=== PATIENT | female | born 1990 | race Two or more races ===

== ENCOUNTER 2020-01-25 07:00 | Day surgery (SDC) | payer OTHER ==
--- NOTE | 2020-01-24 11:56 | NUR ---
PACIENTE ALERTA Y ORIENTADA EN TIEMPO LUGAR Y PERSONA. PACIENTE REFIERE SANGRADO VAGINAL LEVE EN EL JUSTINA DE SHARLENE, DOLOR EN EL CUERPO, DOLOR DE AGATA MODERADO. PACIENTE REFIERE TENER DE 6-8 SEMANAS DE EMBARAZO. SE CANDE SIGNOS VITALES Y SE COLOCA PACIENTE EN AREA DE OBSERVACION.
--- NOTE | 2020-01-24 12:29 | NUR ---
SE RECIBE PTE FEMENINA DE 29 YRS ALERTA CONCIENTE Y TRANQUILA . ES EVALUADA POR EL MARTA BROOKS QUIEN ORDENA TRATMAIENTO LA CUAL SE EJECUTA POR MS.PEREZ OLSON. SE MANTIENE BAJO OBSERVACION POR CAMBIOS.
--- NOTE | 2020-01-24 15:29 | NUR ---
SE RECIBE PTE LA CUAL SE ENCUENTRA EN IVY CON BARANDAS ELEVADAS Y ID BAND, LA MISMA PRESENTA AREA DE VENOPUNCION PATENTE Y GARY DE EDEMA LA MISMA SE ENCUENTRA PEND A RESULTADOS DE LAB.
--- NOTE | 2020-01-24 20:00 | NUR ---
DR.CEDRIC RODRÍGUEZ INDICA QUE PTE PERMANECERA EN EDILBERTO DE EMERGENCIA Y QUE EN EL JUSTINA DE MANANA EL PASARA PARA REALIZAR EVALUACION MEDICA DE PTE Y TRASLADARLA A EDILBERTO DE OPERACIONES PARA CIRUGIA. SE ORIENTA A PTE SOBRE LO DICHO ANTERIORMENTE. PTE REFIERE COMPRENDER. SE MANTIENE EN OBSERVACION POR CAMBIOS EN CONDICION MEDICA.
[~2020-01-25] VITALS: Ht 99.1 cm; Wt 63.0 kg
--- NOTE | 2020-01-25 00:57 | NUR ---
SE RECIBE PTE DEL TURNO ANTERIOR, ALERTA Y ORIENTADA X 3 ESFERAS, EN IVY NIVEL MAS BAJO, MARTE DE IDENTIFICACION Y BARANDAS ELEVADAS POR PRECAUCION, EN COMPANIA DE FAMILIAR. SE OBSERVA CON BUEN PATRON RESPIRATORIO Y PIEL TIBIA AL TACTO. IV PATENTE Y GARY DE EDEMA O ERITEMA CON R/L/ 20 U PITOCINA @125ML/HR. CONSULTA CON DR RODRÍGUEZ. SE MANTIENE BAJO OBSERVACION.
--- NOTE | 2020-01-25 06:23 | NUR ---
PTE EVALUADA POR EL DR BERNARDO, QUIEN REALIZA ADMISION PARA OR. SE ORIENTA A PTE Y FAMILIAR SOBRE EL PROCESO DE ADMISION, LO CUAL REFIEREN ENTENDER, MS Noah MIN ENTREGA VESTIMENTA PARA OR. PTE ES LLEVADA A EDILBERTO DE OPERACIONES POR PERSONAL DE TRANSPORTE EN IVY, JUNTO CON FAMILIAR Y BIA PERTENENCIAS. SE ENTREGA RECORD A PERSONAL DE TRANSPORTE.
[~2020-01-25 07:00] MED LIST: FOLIC ACID1 MG
== END 2020-01-25 13:00 | disposition home or self-care (01) ==
LOC: CIR.AMB 07:00 → EDSTATUS 13:15
PROVIDERS: ATTEND Emergency Medicine
DX: O02.1 Missed abortion (principal); O36.80X0 Pregnancy with inconclusive fetal viability, not applicable or unspecified; O26.852 Spotting complicating pregnancy, second trimester; Z20.828 Contact with and (suspected) exposure to other viral communicable diseases